=== PATIENT | male | born 2000 | race Caucasian/White ===

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

== ENCOUNTER 2020-04-09 16:32 | Emergency (ER) | payer OTHER ==
[~2020-04-09] VITALS: Ht 193 cm; Wt 93.0 kg
[2020-04-09 18:17] VITALS: BP 114/54
[2020-04-10] MEDS ORDERED: ZOFRAN ODT4 MG DISSOLVE (00:58)
== END 2020-04-09 18:18 | disposition home or self-care (01) ==
LOC: M.ERS 16:32
DX: S51.812A Laceration without foreign body of left forearm, initial encounter (principal); W45.8XXA Other foreign body or object entering through skin, initial encounter; Y93.89 Activity, other specified; Y92.69 Other specified industrial and construction area as the place of occurrence of the external cause; Y99.9 Unspecified external cause status

== ENCOUNTER 2020-04-09 23:44 | Emergency (ER) | payer OTHER ==
[~2020-04-09] VITALS: Ht 182.9 cm; Wt 90.7 kg
[2020-04-10 00:25] LABS: ABSOLUTE EOSINOPHILS 0.1 thou/uL (0.0-0.7); ABSOLUTE LYMPHOCYTES 1.5 thou/uL (0.8-5.3); ABSOLUTE MONOCYTES 1.5 thou/uL (0.0-1.2); ABSOLUTE NEUTROPHILS 14.3 thou/uL (1.6-8.1); BASOPHILS 0.2 %; EOSINOPHILS 0.7 %; HEMATOCRIT 46.4 % (42.0-52.0); HEMOGLOBIN 16.2 gm/dL (14.0-18.0); LYMPHOCYTES 8.7 %; MCH 30.5 pg (26.0-34.0); MCHC 34.8 g/dL (28.0-37.0); MCV 87.4 fL (80.0-100.0); MONOCYTES 8.6 %; MPV 8.4 fl. (7.2-11.1); NUCLEATED RBCS 0 /100WBC; PLATELET COUNT* 281 thou/uL (150-400); POLYS 81.8 %; RBC 5.31 mil/uL (4.50-6.00); RDW-CV 12.4 % (10.5-14.5); WBC 17.5 thou/uL (4.0-11.0)
[2020-04-10 00:29] LABS: CALCIUM 9.1 mg/dL (8.5-10.1); CREATININE 1.2 mg/dL (0.6-1.3); POTASSIUM 3.8 mmol/L (3.5-5.1)
[2020-04-10 00:34] LABS: ALBUMIN 4.8 g/dL (3.4-5.0); TOTAL BILIRUBIN 0.9 mg/dL (<0.1-1.0); TOTAL PROTEIN 8.2 g/dL (6.4-8.2)
[2020-04-10] MEDS ORDERED: ZOFRAN ODT4 MG DISSOLVE (00:58)
[2020-04-10 01:20] VITALS: BP 122/64
== END 2020-04-10 01:20 | disposition home or self-care (01) ==
LOC: M.ERS 23:44
PROVIDERS: Emergency Medicine Emergency Medical Services
DX: K52.9 Noninfective gastroenteritis and colitis, unspecified (principal); Z20.828 Contact with and (suspected) exposure to other viral communicable diseases